=== PATIENT | male | born 1995 | race Caucasian/White ===

== ENCOUNTER 2020-09-27 12:25 | Outpatient (CLI) | payer OTHER | END 2020-09-27 12:26 | disposition critical access hospital (66) | LOC: EMS 12:25 | DX: R07.9 Chest pain, unspecified (principal); W86.1XXA Exposure to industrial wiring, appliances and electrical machinery, initial encounter | CPT/HCPCS: A0425; A0427 ==

== ENCOUNTER 2020-09-27 12:50 | Emergency (ER) | payer OTHER ==
--- NOTE | 2020-09-27 13:11 | ED Physician Documentation ---
History of Present Illness - Stated complaint Stated Complaint: R ARM/CHEST PX - Additonal information Additional information: 24-year-old male presents emergency department for evaluation of an electrical shock. 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 he may have been in contact with it for about 3 seconds. He was holding the wire with his right hand. No obvious exit injury. No loss of consciousness. He does report some reproducible right-sided chest pain. Denies SOA Past medical history unremarkable. No tobacco or alcohol use. Takes no prescribed medications. Denies dyspnea. Review of Systems Constitutional: denies: Fever, Chills Eyes: reports: Reviewed and negative Ears: reports: Loss of hearing Nose: reports: Reviewed and negative Throat: reports: Reviewed and negative Cardiac: reports: Chest pain / pressure Respiratory: reports: Reviewed and negative GI: reports: Reviewed and negative : reports: Reviewed and negative PD PAST MEDICAL HISTORY - Allergies Allergies/Adverse Reactions: Allergies Allergy/AdvReac Type Severity Reaction Status Date / Time No Known Drug Allergies Allergy Verified 09/27/20 13:22 PD ED PE NORMAL - General General: Alert and oriented X 3, No acute distress - HEENT HEENT: PERRL - Neck Neck: Supple, no meningeal sign - Cardiac Cardiac: RRR, No murmur - Respiratory Respiratory: Clear bilaterally - Abdomen Abdomen: Normal bowel sounds, Soft, Non tender, Non distended - Back Back: No CVA TTP - Derm Derm: Normal color, Warm and dry, No rash, Other (No burn injuries exit or entry signs.) - Extremities Extremities: No deformity, No tenderness to palpate - Neuro Neuro: Alert and oriented X 3, 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 pericarditis. NO STEMI) 1456 Rate: Rate (enter#) (74) Rhythm: NSR [place]: Normal Intervals: Normal LA QRS: Normal Ischemia: Other (Mild J-point elevation. Unchanged from very recent.) Compare to prior EKG: Unchanged from prior EKG Computer interpretation: Agree with computer - Labs Labs: Laboratory Tests 09/27/20 09/27/20 09/27/20 13:15 13:15 13:15 WBC 5.4 RBC 4.81 Hgb 14.0 Hct 41.4 L MCV 86.1 MCH 29.1 MCHC 33.8 RDW 11.9 L Plt Count 232 MPV 10.7 Neut # (Auto) 3.6 Lymph # (Auto) 1.4 L Patrick # (Auto) 0.4 Eos # (Auto) 0.1 Baso # (Auto) 0.0 Absolute Nucleated RBC 0.00 Nucleated RBC % 0.0 Sodium 135 Potassium 3.8 Chloride 99 L Carbon Dioxide 26 Anion Gap 10.0 BUN 13 Creatinine 1.0 Estimated GFR (MDRD) 92 Glucose 96 Calcium 9.3 Total Bilirubin 0.6 AST 22 ALT 20 Alkaline Phosphatase 71 Total Creatine Kinase 147 Troponin I High Sens 3.7 Total Protein 7.7 Albumin 4.8 Globulin 2.9 Albumin/Globulin Ratio 1.7 Lipase 21 L 09/27/20 14:56 WBC RBC Hgb Hct MCV MCH MCHC RDW Plt Count MPV Neut # (Auto) Lymph # (Auto) Patrick # (Auto) Eos # (Auto) Baso # (Auto) Absolute Nucleated RBC Nucleated RBC % Sodium Potassium Chloride Carbon Dioxide Anion Gap BUN Creatinine Estimated GFR (MDRD) Glucose Calcium Total Bilirubin AST ALT Alkaline Phosphatase Total Creatine Kinase Troponin I High Sens 3.8 Total Protein Albumin Globulin Albumin/Globulin Ratio Lipase - Rads (name of study) CXR Radiology: Final report received (No acute process) PD MEDICAL DECISION MAKING - ED course Complexity details: reviewed results, re-evaluated patient, considered differential ED course: This is a well-appearing 24-year-old male presents emergency department after electrical shock when handling a grounding wire. He may have held onto it for about 4 seconds. He did report right-sided chest pain. On presentation his initial ECG is sinus. We do note that there is a very mild J-point elevation. Screening labs including troponin are unremarkable. His CK was not elevated. Given the mild J-point elevation a 2-hour Martinez was instituted as well as repeat EKG and troponin which remained negative. Patient feels well has been clinically stable will be discharged home. Advised follow-up with [facility] tomorrow. Departure - Departure Disposition: 01 Home, Self Care Clinical Impression: Electric shock Qualifiers: Encounter type: initial encounter Qualified Code(s): T75.4XXA - Electrocution, initial encounter Condition: Stable Record reviewed to determine appropriate education?: Yes Comments: Adams nelson are seen in the ER today after an electrical shock after grabbing a grounding wire. The screening EKG show a mild J-point elevation in your ST segments but after few hours observation in the ER this is unchanged. Your screening labs were also unremarkable. Your troponin which is a marker of cardiac injury was not elevated. Please continue to follow-up with [facility] tomorrow for clearance to return to work and before you resume physical activity or the runs. Return to the ER if you develop chest pain, have shortness of air, have severe muscle aches or develop any fevers.
[2020-09-27 13:20] LABS: BASOPHILS % (AUTO) 0.4 %; EOSINOPHILS # (AUTO) 0.1 10^3/uL (0.0-0.7); HCT - HEMATOCRIT 41.4 % (42.0-52.0); LYMPHOCYTES # (AUTO) 1.4 10^3/uL (1.5-3.5); LYMPHOCYTES % (AUTO) 25.6 %; MEAN CORPUSCULAR HEMOGLOBIN 29.1 pg (27.0-31.0); MEAN CORPUSCULAR HGB CONC 33.8 g/dL (32.0-36.0); MEAN CORPUSCULAR VOLUME 86.1 fL (80.0-94.0); MEAN PLATELET VOLUME 10.7 fL (7.4-11.4); MONOCYTES # (AUTO) 0.4 10^3/uL (0.0-1.0); MONOCYTES % (AUTO) 6.4 %; NEUTROPHILS # (AUTO) 3.6 10^3/uL (1.5-6.6); NEUTROPHILS % (AUTO) 65.4 %; PLT - PLATELET COUNT 232 10^3/uL (130-450); RED BLOOD COUNT 4.81 10^6/uL (4.70-6.10); RED CELL DISTRIBUTION WIDTH 11.9 % (12.0-15.0); WHITE BLOOD COUNT 5.4 x10^3/uL (4.8-10.8)
[2020-09-27] MEDS ORDERED: SODIUM CHLORIDE 0.9% 1,000 ML IV STA (13:22)
--- NOTE | 2020-09-27 13:35 | XRAY Report ---
PROCEDURE: Chest 1 View X-Ray INDICATIONS: Chest Pain TECHNIQUE: One view of the chest was acquired. COMPARISON: None FINDINGS: Surgical changes and devices: None. Lungs and pleura: No pleural effusions or pneumothorax. Lungs are clear. Mediastinum: Mediastinal contours appear normal. Heart size is normal. Bones and chest wall: No suspicious bony lesions. Overlying soft tissues appear unremarkable. IMPRESSION: No acute process. Reviewed by: Kaushik Vance MD on 09/27/2020 1:33 PM PDT Approved by: Kaushik Vance MD on 09/27/2020 1:33 PM PDT Station ID: [id number]
[2020-09-27 13:39] LABS: ALBUMIN 4.8 g/dL (3.2-5.5); ALBUMIN/GLOBULIN RATIO 1.7 (1.0-2.2); BILIRUBIN,TOTAL 0.6 mg/dL (0.2-1.0); CALCIUM 9.3 mg/dL (8.5-10.3); POTASSIUM 3.8 mmol/L (3.5-5.0); TOTAL PROTEIN 7.7 g/dL (6.7-8.2)
[2020-09-27 15:09] VITALS: BP 125/80
== END 2020-09-27 15:48 | disposition home or self-care (01) ==
LOC: EDBD → ED 12:50
DX: T75.4XXA Electrocution, initial encounter (principal)
CPT/HCPCS: 36415; 80053; 82550; 83690; 84484; 85025; 93005; 96360; 96361; 99283